=== PATIENT | female | born 1965 | race Caucasian/White ===

== ENCOUNTER 2019-01-16 15:35 | Emergency (ER) | payer OTHER ==
[~2019-01-16] VITALS: Ht 167.6 cm; Wt 78.0 kg
[2019-01-16 15:57] VITALS: BP 139/69
[2019-01-16] MEDS ORDERED: OMEP20TA62 PO (16:17)
[2019-01-16] MEDS ORDERED: LISI-170 PO (16:17)
--- NOTE | 2019-01-16 16:20 | NUR ---
TASK RN: PT AMBULATORY WITH STEADY GAIT TO IMAGING
--- NOTE | 2019-01-16 16:28 | NUR ---
TASK RN: PT BACK FROM IMAGING. JENY.
== END 2019-01-16 17:02 | disposition home or self-care (01) ==
LOC: ED 17:00
DX: S43.401A Unspecified sprain of right shoulder joint, initial encounter (principal); S63.501A Unspecified sprain of right wrist, initial encounter; S63.642A Sprain of metacarpophalangeal joint of left thumb, initial encounter; S83.92XA Sprain of unspecified site of left knee, initial encounter; Z85.3 Personal history of malignant neoplasm of breast; W18.30XA Fall on same level, unspecified, initial encounter; Y93.89 Activity, other specified; Y92.69 Other specified industrial and construction area as the place of occurrence of the external cause; Y99.8 Other external cause status
CPT/HCPCS: 99283